=== PATIENT | male | born 1990 | race Two or more races ===

== ENCOUNTER → 2022-08-10 13:57 | Outpatient (BNVA) | payer OTHER, SELFPAY | PROVIDERS: PCP Internal Medicine; Visit Provider Dietitian, Registered | DX: E66.01 Morbid (severe) obesity due to excess calories (principal); Z68.42 Body mass index [BMI] 45.0-49.9, adult; Z71.3 Dietary counseling and surveillance | CPT/HCPCS: 97802 ==